=== PATIENT | female | born 1950 | race Caucasian/White ===

== ENCOUNTER → 2017-05-13 | Outpatient (CLI) | payer OTHER ==
[~2017-05-13] VITALS: Ht 165.1 cm; Wt 69.9 kg
[~2017-05-13] MED LIST: BETAMETHASONE DISODIUM PHOS 6 MG/ML VIAL ONE; CYMBALTA PO; CYMBALTA60 MG PO; DEXILANT60 MG PO; HYDROCODONE PO; ROPIVACAINE INJ ONE; SIMVASTATIN40 MG PO
[2017-05-13 11:22] LABS: BASOPHILS % 0.4 % (0.0-1.0); EOSINOPHILS % 0.5 % (0.0-6.0); HEMATOCRIT 36.3 % (34.2-44.1); HEMOGLOBIN 12.6 g/dL (12.0-16.0); LYMPHOCYTES # (AUTO) 1.7 (1.0-3.2); LYMPHOCYTES % 29.8 % (18.0-39.1); MEAN CORPUSCULAR HEMOGLOBIN 30.4 pg (28-32); MEAN CORPUSCULAR HGB CONC 34.7 g/dL (31-35); MEAN CORPUSCULAR VOLUME 87.5 fL (81-99); MONOCYTES # (AUTO) 0.8 (0.2-0.8); MONOCYTES % 13.1 % (4.4-11.3); NEUTROPHILS # (AUTO) 3.2 (2.1-6.9); NEUTROPHILS % 55.8 % (38.7-80.0); PLATELET COUNT 285 x10e3/uL (140-360); RED BLOOD COUNT 4.15 x10e6/uL (3.6-5.1)
[2017-05-13 11:35] LABS: INR 0.85
[2017-05-13 11:36] LABS: PARTIAL THROMBOPLASTIN TIME 25.6 seconds (23.8-35.5)
[2017-05-13 11:44] LABS: ALANINE AMINOTRANSFERASE 26 IU/L (0-55); ALBUMIN 3.6 g/dL (3.5-5.0); ALBUMIN/GLOBULIN RATIO 1.4 (0.8-2.0); ALKALINE PHOSPHATASE 68 IU/L (40-150); ANION GAP 12.4 mmol/L (8-16); BLOOD UREA NITROGEN 15 mg/dL (7-26); BUN/CREATININE RATIO 21 (6-25); CALCIUM 9.2 mg/dL (8.4-10.2); CARBON DIOXIDE 24 mmol/L (22-29); CHLORIDE 109 mmol/L (98-107); CREATININE, SERUM 0.71 mg/dL (0.57-1.11); EST GLOMERULAR FILTRATION RATE > 60 ML/MIN (60-); GLUCOSE 95 mg/dL (74-118); POTASSIUM 3.4 mmol/L (3.5-5.1); SODIUM 142 mmol/L (136-145)
== END ==
LOC: LAB 10:44 → CATH LAB 10:44 → EDSTATUS 12:00
PROVIDERS: ATTEND Radiology Vascular & Interventional Radiology
DX: Z01.818 Encounter for other preprocedural examination (principal); Z53.8 Procedure and treatment not carried out for other reasons
CPT/HCPCS: 36415; 80053; 85025; 85610; 85730; J0720; J2795

== ENCOUNTER → 2017-05-20 | Day surgery (SDC) | payer OTHER ==
[~2017-05-20] VITALS: Ht 165.1 cm; Wt 69.9 kg
[~2017-05-20] MED LIST changes: +BUPIVACAINE 0.25%/EPI 30ML SDV INJ ONE; +FENTANYL CITRATE/PF 100MCG/2 ML INJ ONE; +IOPAMIDOL 300MG/ML 50ML INFUS..BTL IV ONE; +LIDOCAINE HCL 2% LOCAL 20 ML VIAL ONE; +MIDAZOLAM HCL 2 MG/2 ML VIAL ONE; -ROPIVACAINE INJ ONE; +SODIUM CHLORIDE 0.9% 1000ML 1,000 ML ONE; +SODIUM CHLORIDE 0.9% 500ML 500 ML ONE
[2017-05-20 13:00] VITALS: BP 125/88
[2017-05-20 14:03] VITALS: BP 146/62
--- NOTE | 2017-05-25 10:37 | Diagnostic Imaging Report ---
History:66-year-old female with symptomatic L1 compression fracture failing conservative management. Comparison studies:Outside MRI lumbar spine March 2017 Procedure L1 Vertebral Augmentation , Interlaminar Lumbar Epidural Steroid Injection Codes: ,82549 Percutaneous vertebral augmentation, 1 vertebral body, unilateral or bilateral cannulation, inclusive of all imaging guidance; lumbar , , , , ,52469 Epidural steroid injection , lumbar or sacral,10797 Fluoroscopic Guidance Spinal (ALIX),43557 Moderate Sedation provided by the same physician performing the diagnostic or therapeutic service that the sedation supports, for patients 5 years of age or older for the first 30 minutes,67591 each additional 15 minutes of intraservice time Sedation: Moderate sedation administered by interventional radiology nurse under supervision of the interventional radiologist with continuous hemodynamic monitoring for 45 minutes. Physician: Mando Shane MD Medications: Fentanyl 150 mcg IV, Versed 2mg IV, Ancef 1 gm IV, Lidocaine 15ml SQ, Bupivacaine 10cc, Betamethasone 2cc Antibiotics: Ancef 1 g administered by slow infusion 15 prior to start of case. Fluoroscopy : 3.9 minutes Contrast: 5 ml Radiation exposure:465.9 cGycm2 Technique: Following informed written consent, patient was placed in a prone position on the angiography table. According to universal protocol, preprocedural time-out was performed with team members agreeing on patient identity, correct site and procedure to be done. The skin was clean, prepped and draped in the usual sterile fashion. Sole Edge Inker Machine images were obtained. Local and periosteal anesthesia was injected and conscious sedation was administered. Then the L1 vertebral body was accessed under fluoroscopic guidance using a left unipedicular approach. Cavity creation was performed using an inflatable balloon tamp. Then under fluoroscopic guidance 4 cc's of Radha HV PMMA was injected into the vertebral body. No cement extravasation was seen. Needle was then removed and hemostasis was acquired by manual compression. 21 Gauge Touhy needle was placed in the epidural space at L1-L2 using an interlaminar approach. Contrast was injected confirming epidural location. Then 5 cc of Bupivacaine and 2 cc of betamethasone was injected into the epidural space. A sterile dressing was applied. Procedure was well tolerated and the patient remained neurologically intact and unchanged during and following the procedure. Patient reported back pain prior to procedure and 0/10 back pain immediately following. Findings: L1 compression fracture. Post procedure imaging demonstrates bilateral distribution of PMMA without cement extravasation. Impression: 1. L1 vertebral augmentation with inflatable balloon tamp, technically and clinically successful. 2. Per PQRS criteria, patient should be screened for osteoporosis. 3. Lumbar interlaminar epidural steroid injection for history of chronic non-fracture related low back pain. Signed by: Dr. Mando Shane M.D. on 05/21/2017 4:12 PM
== END | disposition home or self-care (01) ==
LOC: CATH LAB 06:37 → EDSTATUS 11:30
PROVIDERS: ATTEND Radiology Vascular & Interventional Radiology
DX: S32.010A Wedge compression fracture of first lumbar vertebra, initial encounter for closed fracture (principal); X58.XXXA Exposure to other specified factors, initial encounter
CPT/HCPCS: 22514; 62311; J0720; J2001; J2250; J7030; J7040; Q9967

== ENCOUNTER → 2017-07-09 | Outpatient (CLI) | payer OTHER ==
[~2017-07-09] MED LIST changes: -BETAMETHASONE DISODIUM PHOS 6 MG/ML VIAL ONE; -BUPIVACAINE 0.25%/EPI 30ML SDV INJ ONE; -FENTANYL CITRATE/PF 100MCG/2 ML INJ ONE; -IOPAMIDOL 300MG/ML 50ML INFUS..BTL IV ONE; -LIDOCAINE HCL 2% LOCAL 20 ML VIAL ONE; -MIDAZOLAM HCL 2 MG/2 ML VIAL ONE; -SODIUM CHLORIDE 0.9% 1000ML 1,000 ML ONE; -SODIUM CHLORIDE 0.9% 500ML 500 ML ONE
--- NOTE | 2017-07-09 17:49 | Diagnostic Imaging Report ---
Exam: Bone mineral density study. History: Age-related osteoporosis. Comparison: None Discussion: Evaluation of the left hip and lumbar spine was performed utilizing DEXA Hologic bone densitometer. The study is technically adequate. The patient's fracture risk is compared to an age-matched control. The patient denies prior surgery/fracture of the spine, hips or forearm. Left hip femoral neck bone mineral density: 0.678 g/cm2, T-score is -1.5, Z-score is 0.2. Left hip total bone mineral density: 0.745 g/cm2, T-score is -1.6, Z-score is -0.2. Lumbar spine total bone mineral density: 0.686 gm/cm2, T-score is -3.6, Z-score is -1.5. Kyphoplasty at L1 may artificially increase bone density. Impression: 1. Bone mineralization by WHO Classification: Osteoporosis. Increased risk of fracture. Recommendations: Medical evaluation for secondary causes of low bone mineral density may be appropriate. Correlate clinically for the necessity and timing of the next bone mineral density study. National Osteoporosis Foundation recommendations: Initiate therapy to reduce fracture risk in postmenopausal women with -BMD t-scores below -2 by central DXA with no risk factors -BMD t-scores below -1.5 by central DXA with one or more risk factors (first deg relative with hip fracture, prior personal fracture, low body weight, smoking) -A prior vertebral or hip fracture AACE (Clinical Endocrinology) recommends treating the following: Postmenopausal women who have osteoporosis as diagnosed by fragility fractures or t scores -2.5 or below Postmenopausal women who have risk factors (including fh of hip fracture, low body weight, smoking, risk of falling, high bone turnover, advancing age) and borderline low BMD T scores of -1.5 or below Adequate intake of calcium (at least 1200mg/day) and vitamin D (400-800 IU/day). Regular weight bearing and muscle - strengthening exercises Avoid smoking and excessive alcohol Signed by: Dr. Adriane Miles M.D. on 07/09/2017 5:46 PM
== END ==
LOC: DX 14:35
PROVIDERS: ATTEND Internal Medicine
DX: M81.0 Age-related osteoporosis without current pathological fracture (principal)
CPT/HCPCS: 77080

== ENCOUNTER → 2017-12-01 | Day surgery (SDC) | payer OTHER ==
[~2017-12-01] VITALS: Ht 166.4 cm; Wt 67.1 kg
[2017-12-01] VITALS (11 sets, daily range): BP systolic 98–138; BP diastolic 70–98
[~2017-12-01] MED LIST changes: +ALPRAZOLAM 0.5 MG TAB ONE; +AMBIEN CR12.5 MG PO; +DIPHENHYDRAMINE HCL 25 MG CAP ONE; +FENTANYL CITRATE/PF 100MCG/2 ML INJ ONE; +HEPARIN SOD/SOD CHLORIDE 2,000 ML ONE; +IOPAMIDOL 370 MG/ML 200 ML INFUS..BTL INJ ONE; +LIDOCAINE HCL 2% LOCAL 20 ML VIAL ONE; +MIDAZOLAM HCL 2 MG/2 ML VIAL ONE; +SODIUM CHLORIDE 0.9% 1000ML 1,000 ML ONE; +VERAPAMIL HCL 2.5 MG/ML 2 ML VIAL ONE
--- NOTE | 2017-12-01 12:02 | Operative Report ---
DATE OF PROCEDURE: December 01, 2017 PROCEDURE: Cardiac catheterization. INDICATION: Chest pain, dyspnea on exertion. PRESEDATION ASSESSMENT: Medical history, social history and previous experience with anesthesia was reviewed and is documented in the preoperative medical record. Results of relevant diagnostic studies were reviewed. Planned choice of anesthesia, risks, complications, benefits and alternatives were discussed. The patient deemed appropriate candidate for planned choice of anesthesia. CONSENT: The benefits, risks, complications, and alternatives to the procedure were discussed with patient and informed consent was obtained from patient or their surrogate. MEDICATIONS: Please see nursing notes for medications administered during the procedure. DETAILS OF PROCEDURE: Patient was brought to the cardiac catheterization laboratory in a fasting state. Right wrist was prepped and draped in a sterile fashion; 1% lidocaine was used to infiltrate the right wrist over the right radial artery. A 5-Tuvaluan sheath was placed in the right radial artery using the Seldinger technique. Coronary angiography was performed using 5-Tuvaluan Gwyn catheter to engage both the RCA and the LCA. Multiple orthogonal views were obtained of each coronary artery. An angle pigtail catheter was used to perform left heart catheterization. Hand injection was used to perform a left ventriculogram. All catheters were removed over guidewire. Access site was closed using a TR band. Case ended without any complications. ESTIMATED BLOOD LOSS: Approximately 20 mL. FINDINGS 1. Left main coronary artery: Large caliber normal. 2. LAD: Large vessel very tortuous in the mid portion wrapped around the apex. No significant obstructive coronary artery disease. 3. Left circumflex: Nondominant vessel. One significant OM branch very tortuous. No significant coronary artery disease. 4. RCA: Large dominant RCA bifurcate into RPDA and RPL systems distally, tortuous without significant obstructive coronary artery disease. LV and diastolic pressure 21 mmHg. 5. Hand injection LV: Left ventriculogram showed left ventricular ejection fraction of greater than 70% without any wall motion abnormalities or significant mitral regurgitation or aortic regurgitation. COMPLICATIONS: None. SPECIMEN REMOVED: None. IMPLANTS: None. RECOMMENDATIONS 1. Usual post-cath care until TR band removal. 2. Continue optimal medical therapy and risk factor control. 3. Call the office for followup in 2 weeks post-procedure. Job#: [id number] ANDREI
== END | disposition home or self-care (01) ==
LOC: CATH LAB 07:16
PROVIDERS: ATTEND Internal Medicine
DX: I20.8 Other forms of angina pectoris (principal); I77.1 Stricture of artery; R00.2 Palpitations; Z88.2 Allergy status to sulfonamides
CPT/HCPCS: 93458; J2001; J2250; J7030; Q9967

== ENCOUNTER → 2018-11-28 | Outpatient (CLI) | payer OTHER ==
[~2018-11-28] MED LIST changes: -ALPRAZOLAM 0.5 MG TAB ONE; +DIATRIZOATE MEGL/DIATRIZOA SOD 30 ML BTL PO ONE; -DIPHENHYDRAMINE HCL 25 MG CAP ONE; -FENTANYL CITRATE/PF 100MCG/2 ML INJ ONE; -HEPARIN SOD/SOD CHLORIDE 2,000 ML ONE; -LIDOCAINE HCL 2% LOCAL 20 ML VIAL ONE; -MIDAZOLAM HCL 2 MG/2 ML VIAL ONE; -SODIUM CHLORIDE 0.9% 1000ML 1,000 ML ONE; +SODIUM CHLORIDE 0.9% 50ML 50 ML ONE; -VERAPAMIL HCL 2.5 MG/ML 2 ML VIAL ONE
[2018-11-28 08:41] LABS: BLOOD UREA NITROGEN 7 mg/dL (7-26); BUN/CREATININE RATIO 10 (6-25); CREATININE, SERUM 0.68 mg/dL (0.57-1.11); EST GLOMERULAR FILTRATION RATE > 60 ML/MIN (60-)
--- NOTE | 2018-11-28 09:35 | Diagnostic Imaging Report ---
EXAMINATION: CT of the abdomen and pelvis with contrast. TECHNIQUE: Spiral CT images of the abdomen and pelvis were performed from the lung bases to the lesser trochanters after the intravenous administration of 100 cc Isovue-370. Coronal and sagittal reformatted images were obtained. COMPARISON: None. CLINICAL HISTORY:Lower abdominal pain. Patient reports history of cholecystectomy and left ovarian removal DISCUSSION: ABDOMEN/PELVIS: LOWER THORAX:Unremarkable. HEPATOBILIARY: No focal hepatic lesions. Hepatic parenchyma is diffusely hypoattenuating compatible with steatosis. The gallbladder has been removed. No biliary ductal dilatation. SPLEEN: No splenomegaly. PANCREAS: No focal masses or ductal dilatation. ADRENALS: No adrenal nodules. KIDNEYS/URETERS: 7 mm nonobstructing left lower pole renal calculus. Left upper pole cyst versus calyceal diverticulum with overlying cortical thinning, average internal attenuation 0-5 Hounsfield units (series 2 image 24). The left kidney is diminutive with a lobulated contour best appreciated on coronal images. No additional focal renal lesion. No hydronephrosis or additional calculi. PELVIC ORGANS/BLADDER: The urinary bladder is incompletely distended but otherwise unremarkable. Uterus is anteflexed and appears normal. No adnexal mass. PERITONEUM/RETROPERITONEUM: No free air or fluid. LYMPH NODES: No pelvic sidewall, retroperitoneal, or mesenteric lymphadenopathy. VESSELS: The abdominal aorta, major branch vessels, and iliac arterial systems are patent. Right hepatic artery is replaced to the superior mesenteric artery. Portal vein, splenic vein, and central superior mesenteric vein are patent. GI TRACT: The distal colon and rectum are collapsed and poorly evaluated. There are scattered sigmoid diverticula without mesocolic inflammation. The cecum lies in the deep pelvis. The appendix is not identified; however, no pericecal inflammation. No small bowel dilatation to suggest obstruction. Incidentally noted midgut malrotation with the duodenal-jejunal junction to the right of midline. BONES AND SOFT TISSUE: Surgical clips in the left pelvis and retroperitoneum presumably related to prior oophorectomy. Otherwise no focal soft tissue abnormalities. No osseous destructive lesions. Multilevel degenerative disc changes and facet arthropathy of the lumbar spine. Vertebroplasty cement within the L1 vertebral body. Age indeterminate moderate anterior compression deformity of L3 with approximately 50% loss of anterior height. IMPRESSION: No acute intra-abdominal or pelvic CT abnormalities. Nonobstructing left lower pole renal calculus. Diminutive left kidney with lobulated contour, likely postinflammatory. 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 Mild sigmoid diverticulosis without findings of diverticulitis. Hepatic steatosis. Status post L1 vertebroplasty with age indeterminant moderate anterior compression deformity of L3. Correlate for point tenderness. Signed by: Dr. Nils Enamorado M.D. on 11/28/2018 9:32 AM
== END ==
LOC: CT 07:36
PROVIDERS: ATTEND Internal Medicine Gastroenterology
DX: R10.30 Lower abdominal pain, unspecified (principal); K57.30 Diverticulosis of large intestine without perforation or abscess without bleeding; K76.0 Fatty (change of) liver, not elsewhere classified
CPT/HCPCS: 36415; 74177; 82565; 84520; Q9967

== ENCOUNTER → 2021-02-24 | Outpatient (CLI) | payer OTHER ==
[~2021-02-24] MED LIST changes: -DIATRIZOATE MEGL/DIATRIZOA SOD 30 ML BTL PO ONE; -IOPAMIDOL 370 MG/ML 200 ML INFUS..BTL INJ ONE; -SODIUM CHLORIDE 0.9% 50ML 50 ML ONE
== END ==
LOC: DX 14:40
PROVIDERS: ATTEND Internal Medicine
DX: M81.0 Age-related osteoporosis without current pathological fracture (principal)
CPT/HCPCS: 77080

== ENCOUNTER → 2021-04-08 | Outpatient (CLI) | payer OTHER | LOC: RAD 13:12 | PROVIDERS: ATTEND Internal Medicine | DX: M25.562 Pain in left knee (principal) ==

== ENCOUNTER → 2022-07-20 | Day surgery (SDC) | payer OTHER ==
[2022-07-13 15:46] LABS: BASOPHILS # (AUTO) 0.1 (0.0-0.1); BASOPHILS % 0.8 % (0.0-1.0); EOSINOPHILS # (AUTO) 0.3 (0.0-0.4); HEMATOCRIT 35.8 % (34.2-44.1); HEMOGLOBIN 11.7 g/dL (12.0-16.0); LYMPHOCYTES # (AUTO) 1.8 (1.0-3.2); LYMPHOCYTES % 28.6 % (18.0-39.1); MEAN CORPUSCULAR HEMOGLOBIN 29.7 pg (28-32); MEAN CORPUSCULAR HGB CONC 32.7 g/dL (31-35); MEAN CORPUSCULAR VOLUME 90.9 fL (81-99); MONOCYTES # (AUTO) 0.6 (0.2-0.8); MONOCYTES % 10.2 % (4.4-11.3); NEUTROPHILS # (AUTO) 3.5 (2.1-6.9); NEUTROPHILS % 56.2 % (38.7-80.0); PLATELET COUNT 242 x10e3/uL (140-360); RED BLOOD COUNT 3.94 x10e6/uL (3.6-5.1); RED CELL DISTRIBUTION WIDTH 11.9 % (11.7-14.4)
[~2022-07-20] MED LIST changes: +GLYCOPYRROLATE INJ 0.2 MG/ML VIAL ONE; +LIDOCAINE HCL 2% LOCAL INJ 5 ML SDV VIAL INJ ONE; +LOSARTAN POTASS25 MG PO; +METOCLOPRAMIDE HCL 10 MG/2ML VIAL ONE; +METOPROLOL TARTRATE INJ 1 MG/ML VIAL ONE; +POVIDONE IODINE 0.05% 0.05 % ML PO ONE; +PROPOFOL IV EMULSION 10 MG/ML 20 ML VIAL ONE
[2022-07-20 10:05] VITALS: BP 126/83
== END | disposition home or self-care (01) ==
LOC: OR 07:08
PROVIDERS: ATTEND Internal Medicine Gastroenterology
DX: K21.9 Gastro-esophageal reflux disease without esophagitis (principal); K31.7 Polyp of stomach and duodenum; K29.70 Gastritis, unspecified, without bleeding; K20.90 Esophagitis, unspecified without bleeding; K31.89 Other diseases of stomach and duodenum; K44.9 Diaphragmatic hernia without obstruction or gangrene; Z71.3 Dietary counseling and surveillance; R49.0 Dysphonia; I10 Essential (primary) hypertension; M81.0 Age-related osteoporosis without current pathological fracture; I49.8 Other specified cardiac arrhythmias; F32.A Depression, unspecified; M06.9 Rheumatoid arthritis, unspecified; M19.90 Unspecified osteoarthritis, unspecified site; G47.00 Insomnia, unspecified; Z88.2 Allergy status to sulfonamides; Z01.810 Encounter for preprocedural cardiovascular examination; Z01.812 Encounter for preprocedural laboratory examination; Z79.899 Other long term (current) drug therapy; Z86.010 Personal history of colon polyps
CPT/HCPCS: 36415; 43239; 43450; 85025; 93005; C9113; J2001; J2704; J2765

== ENCOUNTER → 2022-09-29 | Outpatient (CLI) | payer OTHER ==
[~2022-09-29] MED LIST changes: -GLYCOPYRROLATE INJ 0.2 MG/ML VIAL ONE; -LIDOCAINE HCL 2% LOCAL INJ 5 ML SDV VIAL INJ ONE; -METOCLOPRAMIDE HCL 10 MG/2ML VIAL ONE; -METOPROLOL TARTRATE INJ 1 MG/ML VIAL ONE; -POVIDONE IODINE 0.05% 0.05 % ML PO ONE; -PROPOFOL IV EMULSION 10 MG/ML 20 ML VIAL ONE
== END ==
LOC: CARD 09:43
PROVIDERS: ATTEND Internal Medicine
DX: R42 Dizziness and giddiness (principal)
CPT/HCPCS: 93880